=== PATIENT | female | born 1960 | race Caucasian/White ===

== ENCOUNTER → 2016-06-07 | Outpatient (CLI) | payer BC ==
[~2016-06-07] MED LIST: DILT300C21 PO; LISI-725 PO
--- NOTE | 2016-06-07 12:32 | MAMMOGRAPHY REPORT ---
BILATERAL DIGITAL SCREENING MAMMOGRAM TOMOSYNTHESIS WITH CAD: 06/07/2016 CLINICAL HISTORY: Routine screening. Patient has no complaints. TECHNIQUE: Breast tomosynthesis in addition to standard 2D mammography was performed. Current study was also evaluated with a Computer Aided Detection (CAD) system. COMPARISON: Comparison is made to exams dated: 05/12/2015 mammogram, 07/21/2010 mammogram - [facility], and 01/31/2007. BREAST COMPOSITION: There are scattered areas of fibroglandular density in both breasts. FINDINGS: No suspicious masses, calcifications, or areas of architectural distortion are noted in e ither breast. There has been no significant interval change compared to prior exams. IMPRESSION: ACR BI-RADS CATEGORY 1: NEGATIVE There is no mammographic evidence of malignancy. A 1 year screening mammogram is recommended. The p atient will receive written notification of the results. Approximately 10% of breast cancers are not detected with mammography. A negative mammographic repor t should not delay biopsy if a clinically suggestive mass is present. Mary Lou Horton M.D. ah/:06/07/2016 11:38:18 Clinical Nursing Director: Bushra DE GUZMAN(Maricruz)(Sky)(BD), [facility] letter sent: Normal 1/2 BI-RADS Code: ACR BI-RADS Category 1: Negative
== END | disposition home or self-care (01) ==
LOC: C.MAMM 10:42
PROVIDERS: ATTEND Internal Medicine
DX: Z12.31 Encounter for screening mammogram for malignant neoplasm of breast (principal)

== ENCOUNTER → 2017-06-07 | Outpatient (CLI) | payer BC | END | disposition home or self-care (01) | LOC: C.LABBFT 13:25 | PROVIDERS: ATTEND Internal Medicine | DX: D50.9 Iron deficiency anemia, unspecified (principal) ==

== ENCOUNTER → 2017-06-10 | Outpatient (CLI) | payer BC ==
--- NOTE | 2017-06-11 07:57 | MAMMOGRAPHY REPORT ---
BILATERAL DIGITAL SCREENING MAMMOGRAM TOMOSYNTHESIS WITH CAD: 06/10/2017 CLINICAL HISTORY: Routine screening. TECHNIQUE: Breast tomosynthesis in addition to standard 2D mammography was performed. Current study was also evaluated with a Computer Aided Detection (CAD) system. COMPARISON: Comparison is made to exams dated: 06/07/2016 mammogram, 05/12/2015 mammogram, 07/21/2010 ma mmogram - [facility], and 01/31/2007. BREAST COMPOSITION: There are scattered areas of fibroglandular density in both breasts. FINDINGS: An asymmetry in the superior posterior right breast on the MLO view appears less prominent comparing to the 07/21/2010 mammograms, suggesting benignity. No suspicious mass, architectural dist ortion or cluster of microcalcifications is seen. IMPRESSION: ACR BI-RADS CATEGORY 1: NEGATIVE There is no mammographic evidence of malignancy. A 1 year screening mammogram is recommended. The pa tient will receive written notification of the results. Approximately 10% of breast cancers are not detected with mammography. A negative mammographic report should not delay biopsy if a clinically suggestive mass is present. Angella Hinojosa M.D. ay/:06/10/2017 18:07:22 Vacuum Bottle Assembler: Radha DE GUZMAN(Maricruz)(M), [facility] letter sent: Normal 1/2 BI-RADS Code: ACR BI-RADS Category 1: Negative
== END | disposition home or self-care (01) ==
LOC: C.MAMM 10:48
PROVIDERS: ATTEND Internal Medicine
DX: Z12.31 Encounter for screening mammogram for malignant neoplasm of breast (principal)

== ENCOUNTER 2024-10-25 19:56 | Inpatient (IN) ==
[2024-10-25] MEDS: ACETAMINOPHEN 1,000 MG/100 ML VIAL IV STA (20:41)
[2024-10-25] MEDS: SODIUM CHLORIDE 0.9% 1,000 ML IV ONE (20:41)
[2024-10-25 21:18] LABS: Alanine Aminotransferase 12.0 U/L (7-52); Alkaline Phosphatase 161.0 U/L (34-104); Anion Gap 8.0 (3-11); Bilirubin,Total 0.5 mg/dl (0.2-1.0); Blood Urea Nitrogen 24.0 mg/dl (6-23); Calcium 8.9 mg/dl (8.6-10.3); Carbon Dioxide 26.0 mmol/L (21-32); Chloride 100.0 mmol/L (98-107); Creatinine Clr Calc Pharmacy 59.5 ml/min; Glucose 117.0 mg/dl (70-99(Fasting)); Magnesium 1.3 mg/dl (1.7-2.4); Potassium 3.4 mmol/L (3.5-5.1); Sodium 134.0 mmol/L (136-145); Total Protein 7.8 gm/dl (6.0-8.3)
[2024-10-25] MEDS: OPTIRAY 320 100ml IV ONE (21:24)
[2024-10-25 21:27] LABS: Appearance Urine Clear (Clear); Bacteria Urine Automated None Seen (None Seen); Cast Urine Automated 0-2 /lpf (0-2); Epithelial Cell Urine Auto 0-2 /hpf (0-2); Glucose Urine UA Negative (Negative); WBC Urine Automated 0-5 /hpf (0-5)
[2024-10-25 21:32] LABS: INR 1.2 (0.9-1.1); Partial Thromboplastin Time 36 Seconds (21-31); Prothrombin Time 13.0 Seconds (9.0-12.0)
[2024-10-25 21:37] LABS: Hematocrit (blood only) 29.2 % (37.0-47.0); Hemoglobin 9.2 g/dl (12.0-16.0); Immature Granulocytes # (auto) 0.05 K/uL (0.01-0.20); Immature Granulocytes % (auto) 0.3 %; Mean Corpuscular Hemoglobin 31.5 pg (25.0-34.0); Mean Corpuscular Volume 100.0 fL (80.0-100.0); Platelet Count 406 K/uL (130-400); RDW Standard Deviation 57.1 fL (36.4-46.3); Red Blood Count 2.92 M/uL (4.20-5.40); White Blood Count 17.77 K/ul (4.8-10.8)
[2024-10-25 21:40] LABS: Base Excess VBG 0.6 mEq/L; HCO3 VBG 24 mmol/L; Oxygen Saturation VBG 99.0 %; PCO2 VBG 33 mmHg (38-50); PO2 VBG 74 mmHg; pH VBG 7.47 (7.36-7.41)
--- NOTE | 2024-10-25 22:11 | CT Scan Report ---
Exam(s): CT ABDOMEN + PELVIS With Contrast IV Amt: optiray 320 90ml EXAM: CT Abdomen and Pelvis With Intravenous Contrast CLINICAL HISTORY: Reason for exam: abd pain fever. TECHNIQUE: Axial computed tomography images of the abdomen and pelvis with intravenous contrast. CTDI is 10 mGy and DLP is 462 mGy-cm. Automated exposure control was utilized for the study. A dose lowering technique was utilized adhering to the principles of ALARA. CONTRAST: Patient received optiray 320 90ml of IV contrast COMPARISON: CT abdomen pelvis 09/01/2024 FINDINGS: ABDOMEN: Liver: Low-attenuation lesion in the right hepatic lobe measuring 4.3 x 3.8 cm, previously 4.5 x 3.9 cm. Low-attenuation lesion in the left hepatic lobe measuring 3.1 x 2.5 cm, previously 3.3 x 2.9 cm. Gallbladder and bile ducts: Unremarkable. Pancreas: Unremarkable. Spleen: Unremarkable. Adrenals: Unremarkable. Kidneys and ureters: Incompletely characterized lesion in the superior pole the left kidney measuring 3.3 x 2.2 cm, previously 2.3 x 1.9 cm. Stomach and bowel: Moderate colonic stool burden. Colonic diverticulosis without acute diverticulitis. No inflammatory changes. No obstruction. PELVIS: Appendix: No findings to suggest acute appendicitis. Bladder: Unremarkable. Reproductive: Right adnexal lesion measuring 5.4 x 4.5 cm is new. ABDOMEN and PELVIS: Intraperitoneal space: Unremarkable. No free air. No significant fluid collection. Bones/joints: No acute fracture. Soft tissues: Unremarkable. Vasculature: Unremarkable. Lymph nodes: Unremarkable. IMPRESSION: 1. Hepatic lesions are similar to slightly smaller in size. 2. Right adnexal lesion measuring 5.4 x 4.5 cm is new. 3. Incompletely characterized lesion in the superior pole the left kidney slightly increased in size measuring 3.3 x 2.2 cm, previously 2.3 x 1.9 cm. Electronically signed by: Delonte Mora MD 10/25/24 22:09 PM
--- NOTE | 2024-10-25 22:27 | Emergency Department Note ---
History of Present Illness General Chief complaint: Fever Stated complaint: FEVER, REF BY DR Ahn Seen by Provider: 10/25/24 20:08 History of Present Illness Provider complaint: Fever abdominal pain Onset (ago): day(s) 1 Location: abdomen Maximum Pain Intensity: 2 Associated symptoms: + fever/chills 64-year-old female presents emergency department for fever and abdominal pain. Patient reports her symptoms been present for 1 day. Patient reports her pain is in the left lower quadrant. Patient is undergoing chemotherapy by Dr. Ware for colon cancer. No nausea vomiting or diarrhea. No melena or hematochezia. Home Medications Medication Instructions Recorded Confirmed Type ondansetron 8 mg disintegrating 8 mg PO Q8H 07/21/24 10/25/24 History tablet diltiazem HCl 300 mg 300 mg PO DAILY #90 caps 07/22/24 10/25/24 Rx capsule,extended release 24 hr (Cartia XT) lisinopril 20 mg tablet 20 mg PO DAILY #90 tabs 07/22/24 10/25/24 Rx omeprazole 40 mg capsule,delayed 40 mg PO DAILY #90 caps 09/04/24 10/25/24 Rx release baclofen 10 mg tablet 10 mg PO Q6H PRN Muscle Spasm 09/10/24 10/25/24 History dicyclomine 20 mg tablet 20 mg PO Q4H PRN Diarrhea 09/10/24 10/25/24 History lidocaine HCl 2 % mucosal solution 1 applic PO Q4H PRN Mouth Pain 09/10/24 10/25/24 History oxycodone 5 mg/5 mL oral solution 5 mg PO Q6H PRN Pain 09/10/24 10/25/24 History prochlorperazine maleate 10 mg 10 mg PO Q6H PRN Nausea And 09/10/24 10/25/24 History tablet Vomiting apixaban 5 mg (74 tabs) tablets in 5 mg PO BID #74 ea 09/21/24 10/25/24 Rx a dose pack (Eliquis) morphine 10 mg/5 mL oral solution 5 mg (2.5 mL) PO Q6H PRN pain #100 09/21/24 10/25/24 Rx mL capecitabine 500 mg tablet See Rx Instructions .Route .COMPLEX 10/25/24 10/25/24 History Allergies Allergy/AdvReac Type Severity Reaction Status Date / Time metronidazole [From Flagyl] AdvReac Severe Vomiting Verified 10/25/24 22:37 Past Med/Surg History Problem List (Updated 10/25/24 @ 22:42 by Bryce Coyle MD) Fever (Acute) Abdominal pain (Acute) Hypomagnesemia (Acute) Esophageal candidiasis Elevated INR Pulmonary embolism Immunosuppressed status Hypokalemia Dehydration with hypernatremia Abnormal CT of the chest Enterocolitis Legally blind (Chronic) Primary malignant neoplasm of colorectal area with metastasis (Chronic) Retinitis pigmentosa (Chronic) legally blind Hypertension (Chronic) Medical History BPPV (benign paroxysmal positional vertigo) Glomerulonephritis Surgical History History of thyroid cyst removed History of open reduction and internal fixation (ORIF) procedure left arm, childhood History of biopsy of kidney History of liver biopsy Hx of colonoscopy History of D&C Family History Mother Diabetes Father Stroke Heart disease Hypertension Son Factor VII deficiency Grandmother Myocardial infarction Other Cancer Clotting disorder Colorectal cancer Denies family history of Ovarian cancer Prostate cancer Breast cancer Social History Smoking Status: Never smoker Second Hand Exposure: No; Do You Dip or Chew Tobacco: No; Hx Alcohol Use: No Hx Substance Use: No Preferred Language: Maori Communication Ability: Effective Communication Ability Comment: needs to be read to- light perception only Visual Impairment: Blindness Hearing Ability: Normal Mining Engineer Required: No Beliefs That Will Affect Care: Synagogue Synagogue Beliefs: Sabianist marital status: Current Living Situation: Spouse Current Living Situation Comment: Live-in seeing eye dog current occupational status: employed current occupation: Counselor How many Children do You have: 3 Feels Safe at Home: Yes Childhood Exposure to Second-Hand Smoke: No Diet: regular caffeine: Yes Dental Care, Regularly: Yes Physical Activity Frequency: Daily Seatbelt Use: always Sunscreen Use: Yes Assistive Devices: None Physical Exam Vital Signs Vital Signs - 24 hr 10/25/24 19:59 10/25/24 21:34 10/25/24 21:35 Temperature 38.5 C H Temperature Source Oral Pulse Rate 100 H 78 Pulse Rate [Right Finger] 75 Respiratory Rate 18 20 Respiratory Effort / Characteristics Non-Labored Spontaneous Non-Labored Spontaneous Respiratory Depth Normal Normal Respiratory Pattern Regular Blood Pressure 162/99 H Blood Pressure [Right Arm] 138/75 Blood Pressure Mean 120 Blood Pressure Mean [Right Arm] 96 Blood Pressure Position Sitting Pulse Oximetry 98 95 Oxygen Delivery Method Room Air Room Air Sepsis Recent Fever Within 48 Hours Yes Sepsis New/Unexplained Change in Mental Status N/A Sepsis Action Taken by Nursing No Action Required 10/25/24 21:45 10/25/24 21:56 10/25/24 22:00 Temperature 37.6 C Temperature Source Oral Pulse Rate Pulse Rate [Right Finger] 70 76 76 Respiratory Rate 20 21 19 Respiratory Effort / Characteristics Non-Labored Spontaneous Non-Labored Spontaneous Non-Labored Spontaneous Respiratory Depth Normal Normal Normal Respiratory Pattern Blood Pressure Blood Pressure [Right Arm] 129/80 133/80 133/80 Blood Pressure Mean Blood Pressure Mean [Right Arm] 96 97 97 Blood Pressure Position Pulse Oximetry 97 97 97 Oxygen Delivery Method Room Air Room Air Room Air Sepsis Recent Fever Within 48 Hours Sepsis New/Unexplained Change in Mental Status Sepsis Action Taken by Nursing Physical Exam HENT: Exam performed. -Head: Normocephalic and atraumatic. -Mouth/Throat: The oropharynx is clear and moist. No trismus in the jaw. No dental abscesses or uvula swelling. No oropharyngeal exudate or tonsillar abscesses. EYES: Blind. NECK: Normal range of motion. Neck supple. No JVD present. No tracheal deviation and normal range of motion present. CV: Normal rate, regular rhythm, normal heart sounds and intact distal pulses. There is no peripheral edema. Palpable radial pulses bue. PULM/CHEST: Effort normal and breath sounds normal. No respiratory distress. No stridor. no wheezes.no rales. -Chest Wall: no tenderness to palpation ABD: The abdomen is soft. no distension. No mass is present. There is tenderness to palpation of the left lower quadrant. There is no rebound, no guarding. MUSC/SKEL: Normal range of motion. There is no peripheral edema, tenderness or deformity. NEURO: Motor and sensation grossly intact. SKIN: Skin is warm and dry. not diaphoretic. PSYCH: normal mood and affect. Behavior is normal. Judgment and thought content normal. Course Course 2007: The patient was evaluated in room C3. A complete history and physical exam was performed Cardiac monitoring: An order was placed for continuous cardiac monitoring. The monitor shows a rate of 90 with sinus rhythm interpreted by mt [id number]: Vital signs stable. Labs show leukocytosis 17.7. Hemoglobin 9.2. Lactic acid procalcitonin unremarkable. Magnesium 1.3. Magnesium repletion begun in the emergency department. Patient treated empirically with Zosyn. BioFire still pending. Chest x-ray unremarkable. CT of the abdomen pelvis shows a new right adnexal lesion and stable hepatic lesions. Patient will be admitted to the hospitalist team discussed case with Dr. Stark who evaluate the patient for admission. Administered Medications Discontinued Medications Sodium Chloride (Nss) 1,000 mls @ 999 mls/hr IV .Q1H1M ONE Stop: 10/25/24 21:09 Last Infusion: 10/25/24 22:11 Dose: Infused Documented By: Admin: 10/25/24 20:41 Dose: 999 mls/hr Documented By: YOANAK Acetaminophen (Ofirmev) 1,000 mg in 100 mls @ 400 mls/hr IV NOW STA Stop: 10/25/24 20:36 Last Infusion: 10/25/24 21:16 Dose: Infused Documented By: Admin: 10/25/24 20:41 Dose: 400 mls/hr Documented By: YOANAK Ioversol (Optiray 320 100ml) 90 ml IV ONCE ONE Stop: 10/25/24 21:25 Last Admin: 10/25/24 21:24 Dose: 90 ml Documented By: EDK Medical Decision Making Laboratory Data Attestation: I reviewed the patient's lab results. 10/25/24 20:38 10/25/24 20:38 Lab Results 10/25/24 10/25/24 10/25/24 Range/Units 20:38 20:47 21:06 WBC 17.77 H (4.8-10.8) K/ul RBC 2.92 L (4.20-5.40) M/uL Hgb 9.2 L (12.0-16.0) g/dl POC Hgb 9.9 L (12.0-16.0) g/dl Hct 29.2 L (37.0-47.0) % POC Hct 29 L (37-47) % MCV 100.0 (80.0-100.0) fL MCH 31.5 (25.0-34.0) pg MCHC 31.5 L (32.0-36.0) g/dL RDW Std Deviation 57.1 H (36.4-46.3) fL RDW Coeff of Ochoa 15.8 H (11.5-14.5) % Plt Count 406 H (130-400) K/uL MPV 10.0 (9.4-12.4) fL Immature Gran % (Auto) 0.3 % Neut % (Auto) 72.1 % Lymph % (Auto) 21.9 % [place]wey % (Auto) 5.5 % Eos % (Auto) 0.0 % Baso % (Auto) 0.2 % Neut # (Auto) 12.80 H (1.40-6.50) K/uL Lymph # (Auto) 3.90 H (1.20-3.40) K/uL [place]wey # (Auto) 0.98 H (0.11-0.59) K/uL Eos # (Auto) 0.00 (0.00-0.50) K/uL Baso # (Auto) 0.04 (0.00-0.20) K/uL Immature Gran # (Auto) 0.05 (0.01-0.20) K/uL PT 13.0 H (9.0-12.0) Seconds INR 1.2 H (0.9-1.1) APTT 36 H (21-31) Seconds PTT Ratio 1.3 VBG pH 7.47 H (7.36-7.41) VBG pCO2 33 L (38-50) mmHg VBG pO2 74 mmHg VBG HCO3 24 mmol/L VBG O2 Saturation 99.0 % VBG Base Excess 0.6 mEq/L POC Sodium 135 (135-144) mmol/L Sodium 134 L (136-145) mmol/L POC Potassium 3.4 (3.3-5.0) mmol/L Potassium 3.4 L (3.5-5.1) mmol/L POC Chloride 100 L (101-112) mmol/L Chloride 100 (98-107) mmol/L Carbon Dioxide 26 (21-32) mmol/L POC Total CO2 23 L (24-31) mmol/L Anion Gap 8 (3-11) POC Anion Gap 17.0 (16-25) mmol/L POC BUN 21 H (7-18) mg/dl BUN 24 H (6-23) mg/dl Creatinine 0.81 (0.6-1.2) mg/dl POC Creatinine 0.9 (0.6-1.3) mg/dl Est Cr Clr Drug Dosing 59.5 ml/min eGFR 81.52 BUN/Creatinine Ratio 29.6 H (10-20) Glucose 117 H (70-99(Fasting)) mg/dl POC Glucose (other) 118 H (70-99) mg/dl Lactate 0.8 (0.4-2.0) mmol/L Calcium 8.9 (8.6-10.3) mg/dl POC Ioniz Calcium Sarthak 1.09 L (1.12-1.32) mmol/l Magnesium 1.3 L (1.7-2.4) mg/dl Total Bilirubin 0.5 (0.2-1.0) mg/dl Direct Bilirubin 0.1 (0-0.2) mg/dl AST 15 (13-39) U/L ALT 12 (7-52) U/L Alkaline Phosphatase 161 H (34-104) U/L Troponin I High Sens 10.2 (0-14) pg/ml Total Protein 7.8 (6.0-8.3) gm/dl Albumin 3.2 L (3.4-5.0) gm/dl Procalcitonin 0.39 (0-0.5) ng/ml Urine Color Yellow Urine Appearance Clear (Clear) Urine pH 6.5 (4.5-7.5) Ur Specific [place] 1.013 (1.000-1.030) Urine Protein 3+ H (Negative) Urine Glucose (UA) Negative (Negative) Urine Ketones Negative (Negative) Urine Blood Trace H (Negative) Urine Nitrite Negative (Negative) Urine Bilirubin Negative (Negative) Urine Urobilinogen Negative (Negative) Ur Leukocyte Esterase Negative (Negative) Urine WBC (Auto) 0-5 (0-5) /hpf Urine RBC (Auto) 3-5 H (0-2) /hpf U Hyaline Cast (Auto) 0-2 (0-2) /lpf U Epithel Cells (Auto) 0-2 (0-2) /hpf Urine Bacteria (Auto) None Seen (None Seen) Urine Comment Imaging Data Attestation: I personally reviewed and interpreted this imaging study as follows: My Impression: Chest x-ray negative. Airway clear. No pneumothorax. No consolidation. No cardiomegaly or cephalization.. No free air under the diaphragm. No fractures of the skeletal structures. Radiologist's Impression: Abdomen/Pelvis CT 10/25/24 20:09 Exam(s): CT ABDOMEN + PELVIS With Contrast IV Amt: optiray 320 90ml EXAM: CT Abdomen and Pelvis With Intravenous Contrast CLINICAL HISTORY: Reason for exam: abd pain fever. TECHNIQUE: Axial computed tomography images of the abdomen and pelvis with intravenous contrast. CTDI is 10 mGy and DLP is 462 mGy-cm. Automated exposure control was utilized for the study. A dose lowering technique was utilized adhering to the principles of ALARA. CONTRAST: Patient received optiray 320 90ml of IV contrast COMPARISON: CT abdomen pelvis 09/01/2024 FINDINGS: ABDOMEN: Liver: Low-attenuation lesion in the right hepatic lobe measuring 4.3 x 3.8 cm, previously 4.5 x 3.9 cm. Low-attenuation lesion in the left hepatic lobe measuring 3.1 x 2.5 cm, previously 3.3 x 2.9 cm. Gallbladder and bile ducts: Unremarkable. Pancreas: Unremarkable. Spleen: Unremarkable. Adrenals: Unremarkable. Kidneys and ureters: Incompletely characterized lesion in the superior pole the left kidney measuring 3.3 x 2.2 cm, previously 2.3 x 1.9 cm. Stomach and bowel: Moderate colonic stool burden. Colonic diverticulosis without acute diverticulitis. No inflammatory changes. No obstruction. PELVIS: Appendix: No findings to suggest acute appendicitis. Bladder: Unremarkable. Reproductive: Right adnexal lesion measuring 5.4 x 4.5 cm is new. ABDOMEN and PELVIS: Intraperitoneal space: Unremarkable. No free air. No significant fluid collection. Bones/joints: No acute fracture. Soft tissues: Unremarkable. Vasculature: Unremarkable. Lymph nodes: Unremarkable. IMPRESSION: 1. Hepatic lesions are similar to slightly smaller in size. 2. Right adnexal lesion measuring 5.4 x 4.5 cm is new. 3. Incompletely characterized lesion in the superior pole the left kidney slightly increased in size measuring 3.3 x 2.2 cm, previously 2.3 x 1.9 cm. Electronically signed by: Delonte Mora MD 07/13/25 22:09 PM [facility] Narrative 2008: The patient was evaluated in room C3. A complete history and physical exam was performed Cardiac monitoring: An order was placed for continuous cardiac monitoring. The monitor shows a rate of 90 with sinus rhythm interpreted by mt [id number]: Vital signs stable. Labs show leukocytosis 17.7. Hemoglobin 9.2. Lactic acid procalcitonin unremarkable. Magnesium 1.3. Magnesium repletion begun in the emergency department. Patient treated empirically with Zosyn. BioFire still pending. Chest x-ray unremarkable. CT of the abdomen pelvis shows a new right adnexal lesion and stable hepatic lesions. Patient will be admitted to the hospitalist team discussed case with Dr. Stark who evaluate the patient for admission. Impression & Plan Hypomagnesemia, Abdominal pain, Fever Discharge Plan Visit Data Chief Complaint: Fever Stated Complaint: FEVER, REF BY ED Provider: Bryce Coyle Discharge Problem: Hypomagnesemia, Abdominal pain, Fever Patient Disposition: Admitted As Inpatient Condition: Fair Forms Stand Alone Forms: [facility] Prescriptions Prescriptions: No Action diltiazem HCl [Cartia XT] 300 mg capsule,extended release 24hr 300 mg PO DAILY Qty: 90 3RF Hold Instructions: Home Medication placed on hold at Doctor's office omeprazole 40 mg capsule,delayed release(DR/EC) 40 mg PO DAILY Qty: 90 3RF ondansetron 8 mg tablet,disintegrating 8 mg PO Q8H lisinopril 20 mg tablet 20 mg PO DAILY Qty: 90 3RF Hold Instructions: Home Medication placed on hold at Doctor's office oxycodone 5 mg/5 mL solution 5 mg PO Q6H PRN (Reason: Pain) prochlorperazine maleate 10 mg tablet 10 mg PO Q6H PRN (Reason: Nausea And Vomiting) dicyclomine 20 mg tablet 20 mg PO Q4H PRN (Reason: Diarrhea) baclofen 10 mg tablet 10 mg PO Q6H PRN (Reason: Muscle Spasm) lidocaine HCl 2 % solution 1 applic PO Q4H PRN (Reason: Mouth Pain) Eliquis 5 mg (74 tabs) tablets,dose pack 5 mg PO BID Qty: 74 0RF Rx Instructions: Please take 10mg twice daily for 5 more days, and then subsequently, take 5mg twice daily morphine 10 mg/5 mL solution 5 mg PO Q6H PRN (Reason: pain) Qty: 100 0RF Referrals Referrals: Jazzy Echols MD [Primary Care Provider] - Discharge Problem: Abdominal pain Qualifiers: Abdominal location: unspecified location Qualified Code(s): R10.9 - Unspecified abdominal pain
[2024-10-25] MEDS: PIPERACILLIN/TAZOBACTAM 4.5 GM/120 ML BAG IV ONE (22:35)
[2024-10-25 22:42] LABS: Chlamydia pneumoniae PCR Not Detected (NotDetected); Coronavirus 229E PCR Not Detected (NotDetected); Coronavirus CoV-2 (COVID19)PCR Not Detected (NotDetected); Coronavirus HKU1 PCR Not Detected (NotDetected); Coronavirus NL63 PCR Not Detected (NotDetected); Coronavirus OC43PCR Not Detected (NotDetected); Human Metapneumovirus PCR Not Detected (NotDetected); Parainfluenza Virus 1 PCR Not Detected (NotDetected); Parainfluenza Virus 2 PCR Not Detected (NotDetected); Parainfluenza Virus 3 PCR Not Detected (NotDetected); Parainfluenza Virus 4 PCR Not Detected (NotDetected); Respiratory Syncytial VirusPCR Not Detected (NotDetected); Rhinovirus/Enterovirus PCR Not Detected (NotDetected)
--- NOTE | 2024-10-25 22:42 | XRay Report ---
Exam(s): XR CXR 1 VIEW EXAM: XR Chest, 1 View CLINICAL HISTORY: Reason for exam: Sepsis. TECHNIQUE: Frontal view of the chest. COMPARISON: 07/08/2024 FINDINGS: Lungs: No consolidation. No overt edema. Pleural space: No pleural effusion. No pneumothorax. Heart: Unremarkable. No cardiomegaly. Tubes, lines and devices: Port-A-Cath in place. IMPRESSION: No acute findings in the chest. Electronically signed by: Delonte Mora MD 10/25/24 22:41 PM
--- NOTE | 2024-10-25 22:54 | History & Physical Report ---
Date of Service October 25, 2024 Assessment & Plan (1) Fever: (2) Hypomagnesemia: (3) Hypokalemia: Plan 64-year-old female PMHx PE on Eliquis, esophageal candidiasis, HTN, neoplasm of colorectal area with metastasis, and GERD presenting for fever of 101.6 (Tmax) on day of arrival with nausea and LLQ abdominal pain. ED evaluation reveals CBC with leukocytosis 17.77, H&H 9.2, 29.2, platelets 406; PT/INR 13/1.2, APTT 36; VBG's pH 7.47, pCO2 33; CMP sodium 134, potassium 3.4, BUN 24, ratio 29.6, glucose 117; magnesium 1.3; alkaline phosphatase 161; albumin 3.2; procalcitonin 0.39; lactate 0.8; UA negative for infection; BioFire negative; CTAP hepatic lesion similar to slightly smaller in size, right adnexal lesion measuring 5.4 x 4.5 cm is new, incompletely characterized lesion in the superior pole L kidney with increase in size (3.3 x 2.2 cm); CXR without acute findings; EKG sinus rhythm with PACs at 90 bpm.; Provided with 1L NSS, Zosyn 4.5 g IV, magnesium 2g IV, and acetaminophen 1 g IV in ED. #Fever Tmax 101.2 F on day of arrival. Some complaints of lower abdominal pain and nausea, without vomiting. Did have history of enterocolitis with diarrhea, treated with 7 day course of Zosyn at that time. ? bacteremia. - CBC leukocytosis 17.77; lactate 0.8; procalcitonin 0.39 - CBC am - BioFire negative, UA negative for infection - Blood cx pending - CXR WNL - CTAP without infectious findings, hepatic lesion similar to slightly smaller in size, right adnexal lesion measuring 5.4 x 4.5 cm is new, incompletely characterized lesion in the superior pole L kidney with increase in size (3.3 x 2.2 cm) - Acetaminophen prn pain/fever - Prochlorperazine + zofran prn N/V - Zosyn IV empirically given history and abdominal pain/nausea #Hypomagnesemia Received 2g IV in ED. - Mg 1.3 - Mg am - Replaced in ED #Hypokalemia Pt states she cannot tolerate oral K replacement, requesting IV. - K 3.4, Mg 1.3- BMP am - 10 mEq KCl IV #Colorectal Cancer with metastasis- Follows with heme/onc, most recent visit 10/07/2024; Port in L chest, placed July 08, 2024 without complaints; Heme/onc consulted - appreciate input + recs, continued chemotherapy at time of admission #PE- Eliquis - continue #HTN- Lisinopril on hold per PCP #GERD- Omeprazole - continue #Pain- Oxycodone, morphine - continue Dispo: Admit, med/sx VTE Prophylaxis: On Eliquis - continue This document was dictated utilizing Vinylmint. Please excuse any grammatical errors that may be secondary to use of this software. Admission and Anticipated Discharge Date Admission Date: 10/25/2024 History of Present Illness Chief Complaint: Fever Primary Care Provider: Jazzy Echols MD 64-year-old female PMHx PE on Eliquis, esophageal candidiasis, HTN, neoplasm of colorectal area with metastasis, and GERD presenting for fever of 101.6 (Tmax) on day of arrival. Patient states that August 2024 she was admitted to the hospital for a bowel infection which she initially had no symptoms from. States that she just presented with a fever and then was admitted for multiple days. She had only experienced some esophageal spasms a few days prior to that. Today, she is presenting with fever of 101.6. She does admit to having abdominal pain "down low" that is described as a jabbing pain that comes and goes. She has had some nausea as well, but no vomiting. 4 days [employer] she had an episode of diarrhea, but then this alternated with some constipation. Her last normal BM was the day of arrival. Patient states that her port was placed July 08, 2024, without any concerns regarding this. She did recently start chemotherapy, on infusion an oral regimen. Port without erythema or edema, no drainage. She did have some lower extremity edema bilateral legs, has resolved nicely. She does complain of some symptoms of TMJ over the past few days, but no URI symptoms to include congestion/rhinorrhea/sore throat. She did have a bout of esophageal candidiasis previously. She denies chest pain, SOB, palpitations, LUTS, numbness/tingling, weakness, syncope, or falls. No known sick contacts. She has no additional complaints. Patient is tearful, holding rosary and hand throughout visit. She is to have an infusion from oncologist 10/28/2024. Patient did not take her nighttime medications to include capecitabine or Eliquis. ED evaluation reveals CBC with leukocytosis 17.77, H&H 9.2, 29.2, platelets 406; PT/INR 13/1.2, APTT 36; VBG's pH 7.47, pCO2 33; CMP sodium 134, potassium 3.4, BUN 24, ratio 29.6, glucose 117; magnesium 1.3; alkaline phosphatase 161; albumin 3.2; procalcitonin 0.39; lactate 0.8; UA negative for infection; BioFire pending; CTAP hepatic lesion similar to slightly smaller in size, right adnexal lesion measuring 5.4 x 4.5 cm is new, incompletely characterized lesion in the superior pole L kidney with increase in size (3.3 x 2.2 cm); CXR without acute findings; EKG sinus rhythm with PACs at 90 bpm.; Provided with 1L NSS, Zosyn 4.5 g IV, magnesium IV, and acetaminophen 1 g IV in ED. Please see Dr. Stark's attestation for adjustments/additions to treatment plan. Allergies Allergy/AdvReac Type Severity Reaction Status Date / Time metronidazole [From Flagyl] AdvReac Severe Vomiting Verified 10/25/24 22:37 Home Medications Medication Instructions Recorded Confirmed Type ondansetron 8 mg disintegrating 8 mg PO Q8H PRN NAUSEA & VOMITING 07/21/24 10/25/24 History tablet diltiazem HCl 300 mg 300 mg PO DAILY #90 caps 07/22/24 10/25/24 Rx capsule,extended release 24 hr (Cartia XT) lisinopril 20 mg tablet 20 mg PO DAILY #90 tabs 07/22/24 10/25/24 Rx omeprazole 40 mg capsule,delayed 40 mg PO DAILY #90 caps 09/04/24 10/25/24 Rx release baclofen 10 mg tablet 10 mg PO Q6H PRN Muscle Spasm 09/10/24 10/25/24 History dicyclomine 20 mg tablet 20 mg PO Q4H PRN Diarrhea 09/10/24 10/25/24 History lidocaine HCl 2 % mucosal solution 1 applic PO Q4H PRN Mouth Pain 09/10/24 10/25/24 History oxycodone 5 mg/5 mL oral solution 5 mg PO Q6H PRN Pain 09/10/24 10/25/24 History prochlorperazine maleate 10 mg 10 mg PO Q6H PRN Nausea And 09/10/24 10/25/24 History tablet Vomiting apixaban 5 mg (74 tabs) tablets in 5 mg PO BID #74 ea 09/21/24 10/25/24 Rx a dose pack (Eliquis) morphine 10 mg/5 mL oral solution 5 mg (2.5 mL) PO Q6H PRN pain #100 09/21/24 10/25/24 Rx mL capecitabine 500 mg tablet See Rx Instructions .Route .COMPLEX 10/25/24 10/25/24 History Past Med/Surg History Problem List Fever (Acute) Abdominal pain (Acute) Hypomagnesemia (Acute) Esophageal candidiasis Elevated INR Pulmonary embolism Immunosuppressed status Hypokalemia Dehydration with hypernatremia Abnormal CT of the chest Enterocolitis Legally blind (Chronic) Primary malignant neoplasm of colorectal area with metastasis (Chronic) Retinitis pigmentosa (Chronic) legally blind Hypertension (Chronic) Medical History BPPV (benign paroxysmal positional vertigo) Glomerulonephritis Surgical History History of thyroid cyst removed History of open reduction and internal fixation (ORIF) procedure left arm, childhood History of biopsy of kidney History of liver biopsy Hx of colonoscopy History of D&C Family History Mother Diabetes Father Stroke Heart disease Hypertension Son Factor VII deficiency Grandmother Myocardial infarction Other Cancer Clotting disorder Colorectal cancer Denies family history of Ovarian cancer Prostate cancer Breast cancer Social History Smoking Status: Never smoker Second Hand Exposure: No; Do You Dip or Chew Tobacco: No; Hx Alcohol Use: No Hx Substance Use: No Preferred Language: Greenlandic Communication Ability: Effective Communication Ability Comment: needs to be read to- light perception only Visual Impairment: Blindness Hearing Ability: Normal Ore Feeder Required: No Beliefs That Will Affect Care: Evangelical Evangelical Beliefs: Spiritism marital status: Current Living Situation: Spouse Current Living Situation Comment: Live-in seeing eye dog current occupational status: employed current occupation: Counselor How many Children do You have: 3 Other Information That Helps Us Care for You: No Feels Safe at Home: Yes Safety Concerns: Feels Safe At This Time Childhood Exposure to Second-Hand Smoke: No Diet: regular caffeine: Yes Dental Care, Regularly: Yes Physical Activity Frequency: Daily Seatbelt Use: always Sunscreen Use: Yes Assistive Devices: None Assistive Devices Comment: Sight dog Review of Systems Review of Systems: All systems reviewed & are unremarkable except as noted in Subjective Physical Exam Physical Exam: General: No acute distress Skin: Warm and dry Head: Normocephalic, atraumatic Eyes: PERRL, conjunctivae clear, sclera non-icteric ENT: External ear and ear canal without swelling; nose atraumatic; good dentition, tongue normal appearance, pharynx normal Neck: Supple, no LAD Cardio: RRR, no M/G/R, S1 and S2 normal Resp: No respiratory distress, Lungs CTA in all lobes bilaterally, no wheezes, rales, or rhonchi Abdomen: Soft, symmetric, nontender; No masses or hepatosplenomegaly; Bowel sounds normoactive MSK: No deformities; pulses palpable and equal; no edema. Neuro: Awake, alert; Sensation intact bilaterally; CN grossly intact Psych: Tearful, Appropriate mood and affect; good judgement and insight. Results & Data Results & Data Vital Signs (Past 12 Hours) Vital Signs Temp Pulse Pulse Resp BP BP Pulse Ox 10/25/24 22:00 37.6 C 76 19 133/80 97 10/25/24 21:56 76 21 133/80 97 10/25/24 21:45 70 20 129/80 97 10/25/24 21:35 75 20 138/75 95 10/25/24 21:34 78 10/25/24 19:59 38.5 C H 100 H 18 162/99 H 98 O2 Del Method 10/25/24 22:00 Room Air 10/25/24 21:56 Room Air 10/25/24 21:45 Room Air 10/25/24 21:35 Room Air 10/25/24 21:34 10/25/24 19:59 Room Air Laboratory Results 10/25/24 20:57 Aerobic Blood Culture - Pending Blood Anaerobic Blood Culture - Pending 10/25/24 20:38 Aerobic Blood Culture - Pending Blood Anaerobic Blood Culture - Pending 10/25/24 10/25/24 10/25/24 21:11 21:06 20:47 WBC RBC Hgb POC Hgb 9.9 L Hct POC Hct 29 L MCV MCH MCHC RDW Std Deviation RDW Coeff of Ochoa Plt Count MPV Immature Gran % (Auto) Neut % (Auto) Lymph % (Auto) Yell % (Auto) Eos % (Auto) Baso % (Auto) Neut # (Auto) Lymph # (Auto) Yell # (Auto) Eos # (Auto) Baso # (Auto) Immature Gran # (Auto) PT INR APTT PTT Ratio VBG pH 7.47 H VBG pCO2 33 L VBG pO2 74 VBG HCO3 24 VBG O2 Saturation 99.0 VBG Base Excess 0.6 POC Sodium 135 Sodium POC Potassium 3.4 Potassium POC Chloride 100 L Chloride Carbon Dioxide POC Total CO2 23 L Anion Gap POC Anion Gap 17.0 POC BUN 21 H BUN Creatinine POC Creatinine 0.9 Est Cr Clr Drug Dosing eGFR BUN/Creatinine Ratio Glucose POC Glucose (other) 118 H Lactate Calcium POC Ioniz Calcium Sarthak 1.09 L Magnesium Total Bilirubin Direct Bilirubin AST ALT Alkaline Phosphatase Troponin I High Sens Total Protein Albumin Procalcitonin Urine Color Yellow Urine Appearance Clear Urine pH 6.5 Ur Specific [place] 1.013 Urine Protein 3+ H Urine Glucose (UA) Negative Urine Ketones Negative Urine Blood Trace H Urine Nitrite Negative Urine Bilirubin Negative Urine Urobilinogen Negative Ur Leukocyte Esterase Negative Urine WBC (Auto) 0-5 Urine RBC (Auto) 3-5 H U Hyaline Cast (Auto) 0-2 U Epithel Cells (Auto) 0-2 Urine Bacteria (Auto) None Seen Urine Comment Adenovirus (PCR) Not Detected B. pertussis DNA (PCR) Not Detected B.parapertussis DNA PCR Not Detected C. pneumoniae DNA (PCR) Not Detected Coronavirus OC43 (PCR) Not Detected Coronavirus HKU1 (PCR) Not Detected Coronavirus 229E (PCR) Not Detected SARS-CoV-2 (PCR) Not Detected Coronavirus NL63 (PCR) Not Detected Human Metapneumovir PCR Not Detected Influenza Type A (PCR) Not Detected Influenza Type B (PCR) Not Detected M. pneumoniae (PCR) Not Detected Parainfluenza 1 (PCR) Not Detected Parainfluenza 2 (PCR) Not Detected Parainfluenza 3 (PCR) Not Detected Parainfluenza 4 (PCR) Not Detected RSV (PCR) Not Detected Entero/Rhino (PCR) Not Detected 10/25/24 20:38 WBC 17.77 H RBC 2.92 L Hgb 9.2 L POC Hgb Hct 29.2 L POC Hct MCV 100.0 MCH 31.5 MCHC 31.5 L RDW Std Deviation 57.1 H RDW Coeff of Ochoa 15.8 H Plt Count 406 H MPV 10.0 Immature Gran % (Auto) 0.3 Neut % (Auto) 72.1 Lymph % (Auto) 21.9 Yell % (Auto) 5.5 Eos % (Auto) 0.0 Baso % (Auto) 0.2 Neut # (Auto) 12.80 H Lymph # (Auto) 3.90 H Yell # (Auto) 0.98 H Eos # (Auto) 0.00 Baso # (Auto) 0.04 Immature Gran # (Auto) 0.05 PT 13.0 H INR 1.2 H APTT 36 H PTT Ratio 1.3 VBG pH VBG pCO2 VBG pO2 VBG HCO3 VBG O2 Saturation VBG Base Excess POC Sodium Sodium 134 L POC Potassium Potassium 3.4 L POC Chloride Chloride 100 Carbon Dioxide 26 POC Total CO2 Anion Gap 8 POC Anion Gap POC BUN BUN 24 H Creatinine 0.81 POC Creatinine Est Cr Clr Drug Dosing 59.5 eGFR 81.52 BUN/Creatinine Ratio 29.6 H Glucose 117 H POC Glucose (other) Lactate 0.8 Calcium 8.9 POC Ioniz Calcium Sarthak Magnesium 1.3 L Total Bilirubin 0.5 Direct Bilirubin 0.1 AST 15 ALT 12 Alkaline Phosphatase 161 H Troponin I High Sens 10.2 Total Protein 7.8 Albumin 3.2 L Procalcitonin 0.39 Urine Color Urine Appearance Urine pH Ur Specific [place] Urine Protein Urine Glucose (UA) Urine Ketones Urine Blood Urine Nitrite Urine Bilirubin Urine Urobilinogen Ur Leukocyte Esterase Urine WBC (Auto) Urine RBC (Auto) U Hyaline Cast (Auto) U Epithel Cells (Auto) Urine Bacteria (Auto) Urine Comment Adenovirus (PCR) B. pertussis DNA (PCR) B.parapertussis DNA PCR C. pneumoniae DNA (PCR) Coronavirus OC43 (PCR) Coronavirus HKU1 (PCR) Coronavirus 229E (PCR) SARS-CoV-2 (PCR) Coronavirus NL63 (PCR) Human Metapneumovir PCR Influenza Type A (PCR) Influenza Type B (PCR) M. pneumoniae (PCR) Parainfluenza 1 (PCR) Parainfluenza 2 (PCR) Parainfluenza 3 (PCR) Parainfluenza 4 (PCR) RSV (PCR) Entero/Rhino (PCR) Diagnostic Findings Abdomen/Pelvis CT 10/25/24 20:09 Exam(s): CT ABDOMEN + PELVIS With Contrast IV Amt: optiray 320 90ml EXAM: CT Abdomen and Pelvis With Intravenous Contrast CLINICAL HISTORY: Reason for exam: abd pain fever. TECHNIQUE: Axial computed tomography images of the abdomen and pelvis with intravenous contrast. CTDI is 10 mGy and DLP is 462 mGy-cm. Automated exposure control was utilized for the study. A dose lowering technique was utilized adhering to the principles of ALARA. CONTRAST: Patient received optiray 320 90ml of IV contrast COMPARISON: CT abdomen pelvis 09/01/2024 FINDINGS: ABDOMEN: Liver: Low-attenuation lesion in the right hepatic lobe measuring 4.3 x 3.8 cm, previously 4.5 x 3.9 cm. Low-attenuation lesion in the left hepatic lobe measuring 3.1 x 2.5 cm, previously 3.3 x 2.9 cm. Gallbladder and bile ducts: Unremarkable. Pancreas: Unremarkable. Spleen: Unremarkable. Adrenals: Unremarkable. Kidneys and ureters: Incompletely characterized lesion in the superior pole the left kidney measuring 3.3 x 2.2 cm, previously 2.3 x 1.9 cm. Stomach and bowel: Moderate colonic stool burden. Colonic diverticulosis without acute diverticulitis. No inflammatory changes. No obstruction. PELVIS: Appendix: No findings to suggest acute appendicitis. Bladder: Unremarkable. Reproductive: Right adnexal lesion measuring 5.4 x 4.5 cm is new. ABDOMEN and PELVIS: Intraperitoneal space: Unremarkable. No free air. No significant fluid collection. Bones/joints: No acute fracture. Soft tissues: Unremarkable. Vasculature: Unremarkable. Lymph nodes: Unremarkable. IMPRESSION: 1. Hepatic lesions are similar to slightly smaller in size. 2. Right adnexal lesion measuring 5.4 x 4.5 cm is new. 3. Incompletely characterized lesion in the superior pole the left kidney slightly increased in size measuring 3.3 x 2.2 cm, previously 2.3 x 1.9 cm. Electronically signed by: Delonte Mora MD 10/25/24 22:09 PM Chest X-Ray 10/25/24 20:09 Exam(s): XR CXR 1 VIEW EXAM: XR Chest, 1 View CLINICAL HISTORY: Reason for exam: Sepsis. TECHNIQUE: Frontal view of the chest. COMPARISON: 07/08/2024 FINDINGS: Lungs: No consolidation. No overt edema. Pleural space: No pleural effusion. No pneumothorax. Heart: Unremarkable. No cardiomegaly. Tubes, lines and devices: Port-A-Cath in place. IMPRESSION: No acute findings in the chest. Electronically signed by: Delonte Mora MD 10/25/24 22:41 PM Medications Administered 1L NSS Zosyn 4.5 g IV Magnesium 2g IV Acetaminophen 1 g IV ECG Additional Comments: Sinus rhythm with PACs, LVH 90 bpm, CT 132, QRS 68, QT/QTc 354/433, PRT 45/55/58 Code Status & VTE Plan Code Status Full Supervising Physician Co-Signing Physician Notes Patient seen and examined, chart reviewed, discussed with SD Polo and I agree with the assessment and plan as above PG Care Time/CCT Total # of Minutes Spent Total Time Spent with Patient: Total time spent is greater than 50% in coordination of care (as documented) at patient's floor/unit and/or counseling patient: Coding Level of Care Code 26045 INT INP/OBS CARE 3/75MIN Diagnoses Fever R50.9 Hypomagnesemia E83.42 Hypokalemia E87.6
[2024-10-25] MEDS: MAGNESIUM SULFATE / D5W 1 GM/100 ML BAG IV SCH (23:02)
[2024-10-26] MEDS ORDERED: MORPHINE 10 MG/5 ML PO PRN (00:37)
[2024-10-26] MEDS ORDERED: MAGNESIUM HYDROXIDE SUSP 30 ML UDC PO PRN (00:37)
[2024-10-26] MEDS ORDERED: MELATONIN 3 MG TAB PO PRN (00:37)
[2024-10-26] MEDS ORDERED: BACLOFEN 10 MG TAB PO PRN (00:37)
[2024-10-26] MEDS ORDERED: PROCHLORPERAZINE MALEATE 10 MG TAB PO PRN (00:37)
[2024-10-26] MEDS ORDERED: POLYETHYLENE (MIRALAX) 17 GM PACK PO PRN (00:37)
[2024-10-26] MEDS ORDERED: LIDOCAINE VISCOUS 2% 15 ML UDC PO PRN (00:37)
[2024-10-26] MEDS ORDERED: ACETAMINOPHEN 325 MG TAB PO PRN (00:37)
[2024-10-26] MEDS: POTASSIUM CHLORIDE / WTR 10 MEQ/100 ML PLCT IV ONE (01:24)
[2024-10-26] MEDS ORDERED: ONDANSETRON 4 MG OD TAB PO PRN (01:30)
[2024-10-26] MEDS: PIPERACILLIN/TAZOBACTAM 4.5 GM/100 ML BAG IV SCH (03:53)
[2024-10-26 05:09] LABS: Hematocrit (blood only) 30.4 % (37.0-47.0); Hemoglobin 9.4 g/dl (12.0-16.0); Mean Corpuscular Hemoglobin 31.2 pg (25.0-34.0); Mean Corpuscular Volume 101.0 fL (80.0-100.0); Platelet Count 356 K/uL (130-400); RDW Standard Deviation 58.4 fL (36.4-46.3); Red Blood Count 3.01 M/uL (4.20-5.40); White Blood Count 16.22 K/ul (4.8-10.8)
[2024-10-26 05:26] LABS: Anion Gap 8.0 (3-11); Blood Urea Nitrogen 17.0 mg/dl (6-23); Calcium 8.5 mg/dl (8.6-10.3); Carbon Dioxide 25.0 mmol/L (21-32); Chloride 105.0 mmol/L (98-107); Creatinine Clr Calc Pharmacy 62.6 ml/min; Glucose 100.0 mg/dl (70-99(Fasting)); Magnesium 2.2 mg/dl (1.7-2.4); Potassium 3.6 mmol/L (3.5-5.1); Sodium 138.0 mmol/L (136-145)
[2024-10-26] MEDS: APIXABAN 5 MG TABLET PO SCH (08:18)
--- NOTE | 2024-10-26 11:14 | Electrocardiogram Report ---
Test Reason : Blood Pressure : */* mmHG Vent. Rate : 90 BPM Atrial Rate : 90 BPM P-R Int : 132 ms QRS Dur : 68 ms QT Int : 354 ms P-R-T Axes : 45 55 58 degrees QTcB Int : 433 ms Sinus rhythm with Premature atrial complexes Minimal voltage criteria for LVH, may be normal variant Borderline ECG When compared with ECG of 10-Sep-2024 16:48, Premature atrial complexes are now Present Vent. rate has increased by 37 bpm T wave inversion no longer evident in Lateral leads Confirmed by Angelito Lopez ([id number]) on 10/26/2024 11:14:34 AM Referred By: Luis Ware Confirmed By: Angelito Lopez
[2024-10-26] MEDS: FAMOTIDINE 20MG IV PUSH 20 MG/5 ML SYR IV STA (20:36)
[2024-10-26] MEDS: [UNRECOGNIZED DRUG - REMARK] PO SCH (21:30)
--- NOTE | 2024-10-26 23:00 | Hospitalist Progress Note ---
Date of Service October 26, 2024 Assessment & Plan (1) Fever: (2) Hypomagnesemia: (3) Hypokalemia: Plan 64-year-old female PMHx PE on Eliquis, esophageal candidiasis, HTN, neoplasm of colorectal area with metastasis, and GERD presenting for fever of 101.6 (Tmax) on day of arrival with nausea and LLQ abdominal pain. ED evaluation reveals CBC with leukocytosis 17.77, H&H 9.2, 29.2, platelets 406; PT/INR 13/1.2, APTT 36; VBG's pH 7.47, pCO2 33; CMP sodium 134, potassium 3.4, BUN 24, ratio 29.6, glucose 117; magnesium 1.3; alkaline phosphatase 161; albumin 3.2; procalcitonin 0.39; lactate 0.8; UA negative for infection; BioFire negative; CTAP hepatic lesion similar to slightly smaller in size, right adnexal lesion measuring 5.4 x 4.5 cm is new, incompletely characterized lesion in the superior pole L kidney with increase in size (3.3 x 2.2 cm); CXR without acute findings; EKG sinus rhythm with PACs at 90 bpm.; Provided with 1L NSS, Zosyn 4.5 g IV, magnesium 2g IV, and acetaminophen 1 g IV in ED. #Fever Tmax 101.2 F on day of arrival. Some complaints of lower abdominal pain and nausea, without vomiting. Did have history of enterocolitis with diarrhea, treated with 7 day course of Zosyn at that time. ? bacteremia. - CBC leukocytosis 17.77; lactate 0.8; procalcitonin 0.39 - - BioFire negative, UA negative for infection - Blood cx pending but negative at this point, - CXR WNL - CTAP without infectious findings, hepatic lesion similar to slightly smaller in size, right adnexal lesion measuring 5.4 x 4.5 cm is new, incompletely characterized lesion in the superior pole L kidney with increase in size (3.3 x 2.2 cm) - Acetaminophen prn pain/fever - Prochlorperazine + zofran prn N/V - Zosyn IV empirically given history and abdominal pain/nausea -fever curve improving, will remain on antibiotics. will consider consulting ID, if no source is identified. #Hypomagnesemia Received 2g IV in ED. - Mg 1.3 - Mg am - Replaced in ED #Hypokalemia Pt states she cannot tolerate oral K replacement, requesting IV. - K 3.4, Mg 1.3- BMP am - 10 mEq KCl IV #Colorectal Cancer with metastasis- Follows with heme/onc, most recent visit 10/07/2024; Port in L chest, placed July 08, 2024 without complaints; Heme/onc consulted - appreciate input + recs, continued chemotherapy at time of admission #PE- Eliquis - continue #HTN- Lisinopril on hold per PCP #GERD- Omeprazole - continue #Pain- Oxycodone, morphine - continue Dispo: Admit, med/sx VTE Prophylaxis: On Eliquis - continue Admission and Anticipated Discharge Date Admission Date: October 25, 2024 Subjective Patient reports feeling better. She has no current complaints. Physical Exam Physical Exam: General: No acute distress Head: Normocephalic, atraumatic Cardio: RRR, no M/G/R, S1 and S2 normal Resp: CTA Abdomen: Soft, symmetric, nontender; Neuro: Awake, alert; CN grossly intact Results & Data Results & Data Vital Signs (Past 12 Hours) Vital Signs Temp Pulse Pulse Resp BP Pulse Ox O2 Del Method 10/26/24 19:23 37.2 C 74 18 153/90 H 99 Room Air 10/26/24 16:22 36.9 C 72 16 153/85 H 98 Room Air 10/26/24 13:58 36.8 C 72 18 152/80 H 99 Room Air 10/26/24 13:15 67 10/26/24 12:45 75 18 123/75 99 Room Air PG Care Time/CCT Total # of Minutes Spent Total Time Spent with Patient: Total time spent is greater than 50% in coordination of care (as documented) at patient's floor/unit and/or counseling patient: Coding Level of Care Code 29763 SUB INP/OBS CARE 3/50MIN Diagnoses Fever R50.9 Hypomagnesemia E83.42 Hypokalemia E87.6
[2024-10-27 06:37] LABS: Hematocrit (blood only) 28.5 % (37.0-47.0); Hemoglobin 8.9 g/dl (12.0-16.0); Mean Corpuscular Hemoglobin 31.0 pg (25.0-34.0); Mean Corpuscular Volume 99.3 fL (80.0-100.0); Platelet Count 376 K/uL (130-400); RDW Standard Deviation 55.9 fL (36.4-46.3); Red Blood Count 2.87 M/uL (4.20-5.40); White Blood Count 14.58 K/ul (4.8-10.8)
[2024-10-27 06:51] LABS: Anion Gap 9.0 (3-11); Blood Urea Nitrogen 13.0 mg/dl (6-23); Calcium 8.8 mg/dl (8.6-10.3); Carbon Dioxide 25.0 mmol/L (21-32); Chloride 101.0 mmol/L (98-107); Creatinine Clr Calc Pharmacy 53.5 ml/min; Glucose 103.0 mg/dl (70-99(Fasting)); Potassium 3.5 mmol/L (3.5-5.1); Sodium 135.0 mmol/L (136-145)
[2024-10-27] MEDS: ONDANSETRON INJ 2 MG/ML 2 ML VIAL IV PRN (08:20)
[2024-10-27] MEDS: CAPECITABINE PO SCH (08:21)
--- NOTE | 2024-10-27 11:41 | Infectious Disease Consult ---
Date of Consultation October 27, 2024 Assessment & Plan (1) Fever: (2) Primary malignant neoplasm of colorectal area with metastasis: Plan ID Problem List: # Fever, resolved # Leukocytosis, improving # Mild abdominal pain # Stage IV metastatic colon ca dx 06/02/24 on chemotherapy (CapeOx plus bevacizumab 07/15/24 and 08/05/24 -> Capiri plus bevacizumab 08/26/24 -> now on just capecitabine + bevacizumab) via port placed 07/08/24 # Immunocompromised status due to chemotherapy Impression: Alyssa Mcmanus is a 64-year-old woman with history of stage IV metastatic colon ca dx 06/02/24 on chemotherapy (CapeOx plus bevacizumab 07/15/24 and 08/05/24 -> Capiri plus bevacizumab 08/26/24 -> now on just capecitabine + bevacizumab) via port placed 07/08/24, PE on Eliquis, esophageal candidiasis, GERD, recent a dmission to [facility] 09/1009/21/24 for enterocolitis in the setting of recent neutropenia, who presents to [facility] on 10/25/24 with fever. The patient was recently admitted from 09/1009/21/24 for enterocolitis in the setting of recent neutropenia. The patient had presented with 2 weeks of epigastric pain, especially after eating or drinking, with mild diarrhea. No fevers or vomiting. Her symptoms had begun shortly after her infusion of chemotherapy (Capiri plus bevacizumab on 08/26). She continued to have pain refractory to medications, and presented to [facility] on 09/10 at which time labs showed an increased WBC count to 9.65 on 09/10 (previously 2.54 on 09/08). A CT A/P with contrast showed possible enterocolitis and possible RLL segmental PE. She was seen by GI and suspected to have esophageal candidiasis (EGD not performed), and was treated with fluconazole and nystatin (had trouble tolerating fluconazole pills and continued on nystatin post-discharge). Her enterocolitis was treated with 7 days of pip-tazo and her diarrhea improved. The patient presents now with fever (to T101.6F on day of presentation). She reports that her noticed that she felt hot; she was otherwise asymptomatic and reports that she was under two blankets and didnt notice until her checked her temperature. She also has lower abdominal pain that is intermittent and nausea without vomiting. No sweats. She had loose stools 4 days GENERAL DOC but has since had constipation as well. In the ED, T38.5, WBC 17.7 Hgb 9.2 plt 406 Cr 0.81 AST 15 ALT 12 alp 161 procal 0.39 lactate 0.8. UA with 0-5 WBCs, 3-5 RBCs. BioFire negative. CTAP without infectious findings; did show hepatic lesion similar to slightly smaller in size, new right adnexal lesion measuring 5.4 x 4.5 cm, incompletely characterized lesion in the superior pole L kidney with increase in size (3.3 x 2.2 cm); CXR without acute findings. She was started on pip-tazo. The patients last fever was 38.5 on 10/25. She has had some lower-grade temps since then including T37.5 on 10/27. On 10/27, WBC 14.58. CRP 13.32. The patient last received IV chemotherapy (irinotecan) infusion on 08/26 but has stopped this. She is now only on oral capecitabine and bevacizumab (q3 weeks). She last received bevacizumab on 10/21; she continues to take oral capecitabine (though missed doses on Wednesday 10/25 when she came in to the hospital). She has not previously had any fevers after taking her bevacizumab. At the time of evaluation, the patient says she feels well and feels like she is at baseline. She says the PO capecitabine often causes her intermittent GI discomfort (nausea, abdominal discomfort) that is transient. No pain. Intermittent loose stools, formed stools, and constipation. Her odynophagia (presumed to be from esophageal candidiasis) has resolved. She has gone to hinduism and has gone shopping, and sometimes sits outdoors on her patio. No other recent travel. Discussion The patient presents with one day of fever of unclear etiology; this was not associated with any new symptoms (her noticed that she felt hot, the patient did not realize she was having a fever). She has intermittent mild abdominal pain and intermittent loose stools, but otherwise does not have symptoms. Stool biofire is negative. Consider the possibility of GI translocation (that was not detected on BCx) especially i/s/o colon ca, drug fevers (including from her chemo/immunotherapy). UA without pyuria. CXR clear and without respiratory symptoms. BCx remain NGTD. Her fevers have improved while in the hospital and receiving pip-tazo, suggestive of either a potential response to abx, or perhaps a self-resolving process (such as a viral infection). She also has a leukocytosis which is improving as well. CT A/P without acute infectious process, but does show a new R adnexal lesion which may represent a new metastatic lesion though is uncertain oncology to further evaluate. The patient last received IV chemotherapy (irinotecan) infusion on 08/26, and last received bevacizumab on 10/21; she continues to take oral capecitabine. She has never reported a fever after her bevacizumab or capecitabine in the past. She is not currently neutropenic. While she may have some intermittent neutropenia from chemotherapy, she is not a persistently neutropenic host. (The last time her labs showed neutropenia was 09/04/24 with WBC 0.40 ANC <500; has not been neutropenic since labs on 09/08/24). Given potential response to pip-tazo and the possibility of a GI source such as low-level GI translocation in the setting of cancer, can continue pip-tazo while inpatient, and transition to Augmentin upon discharge. Would ensure close follow-up. Recommendations: - Can continue pip-tazo while inpatient. Upon discharge, can change to Augmentin 875 mg PO BID to complete a 7-day course (10/2510/31/24) - F/u 10/25 BCx until finalized to ensure remains negative. - Ensure close follow-up with oncology and primary care Plan discussed with primary team. Thank you for letting ID participate in the care of this patient. ID will sign off at this time. If questions, please contact the [facility] call center at [phone]. Olivia Ochoa MD, MHS Infectious Diseases [facility] direct line: [phone] Consultation Information Consultation was provided via telemedicine using two-way real-time interactive telecommunication between the patient and the telemedicine provider. For the duration of the visit, the provider was performing the assessment from a different facility than the patient. This includesuse of bluetooth stethoscope forauscultationperformed by the telepresenter that the telemedicine provider can hear if described in the physical exam. [employer] contact information: Please call [facility] Call Center [phone]. (Phone Number For Physician Use Only) After establishing a telemedicine visit, patient was: Patient was verified with two unique identifiers, Patient/authorized rep acknowledged consent and understanding and Gave permission to continue telehealth session Time Spent with Patient: Initial => 75 min History of Present Illness Reason for Consultation: Fever Attending Physician: Chon Méndez History of Present Illness Alyssa Mcmanus is a 64-year-old woman with history of stage IV metastatic colon ca dx 06/02/24 on chemotherapy (CapeOx plus bevacizumab 07/15/24 and 08/05/24 -> Capiri plus bevacizumab 08/26/24 -> now on just capecitabine + bevacizumab) via port placed 07/08/24, PE on Eliquis, esophageal candidiasis, GERD, recent admission to [facility] 09/1009/21/24 for enterocolitis in the setting of recent neutropenia, who presents to [facility] on 10/25/24 with fever. The patient was recently admitted from 09/1009/21/24 for enterocolitis in the setting of recent neutropenia. The patient had presented with 2 weeks of epigastric pain, especially after eating or drinking, with mild diarrhea. No fevers or vomiting. Her symptoms had begun shortly after her infusion of chemotherapy (Capiri plus bevacizumab on 08/26). She continued to have pain refractory to medications, and presented to [facility] on 09/10 at which time labs showed an increased WBC count to 9.65 on 09/10 (previously 2.54 on 09/08). A CT A/P with contrast showed possible enterocolitis and possible RLL segmental PE. She was seen by GI and suspected to have esophageal candidiasis (EGD not performed), and was treated with fluconazole and nystatin (had trouble tolerating fluconazole pills and continued on nystatin post-discharge). Her enterocolitis was treated with 7 days of pip-tazo and her diarrhea improved. The patient presents now with fever (to T101.6F on day of presentation). She reports that her noticed that she felt hot; she was otherwise asymptomatic and reports that she was under two blankets and didnt notice until her checked her temperature. She also has lower abdominal pain that is intermittent and nausea without vomiting. No sweats. She had loose stools 4 days GENERAL DOC but has since had constipation as well. In the ED, T38.5, WBC 17.7 Hgb 9.2 plt 406 Cr 0.81 AST 15 ALT 12 alp 161 procal 0.39 lactate 0.8. UA with 0-5 WBCs, 3-5 RBCs. BioFire negative. CTAP without infectious findings; did show hepatic lesion similar to slightly smaller in size, new right adnexal lesion measuring 5.4 x 4.5 cm, incompletely characterized lesion in the superior pole L kidney with increase in size (3.3 x 2.2 cm); CXR without acute findings. She was started on pip-tazo. The patients last fever was 38.5 on 10/25. She has had some lower-grade temps since then including T37.5 on 10/27. On 10/27, WBC 14.58. CRP 13.32. The patient last received IV chemotherapy (irinotecan) infusion on 08/26 but has stopped this. She is now only on oral capecitabine and bevacizumab (q3 weeks). She last received bevacizumab on 10/21; she continues to take oral capecitabine (though missed doses on Wednesday 10/25 when she came in to the hospital). She has not previously had any fevers after taking her bevacizumab. At the time of evaluation, the patient says she feels well and feels like she is at baseline. She says the PO capecitabine often causes her intermittent GI discomfort (nausea, abdominal discomfort) that is transient. No pain. Intermittent loose stools, formed stools, and constipation. Her odynophagia (presumed to be from esophageal candidiasis) has resolved. She has gone to hinduism and has gone shopping, and sometimes sits outdoors on her patio. No other recent travel. Allergies Allergy/AdvReac Type Severity Reaction Status Date / Time metronidazole [From Flagyl] AdvReac Severe Vomiting Verified 10/25/24 22:37 Home Medications Medication Instructions Recorded Confirmed Type ondansetron 8 mg disintegrating 8 mg PO Q8H PRN NAUSEA & VOMITING 07/21/24 10/25/24 History tablet diltiazem HCl 300 mg 300 mg PO DAILY #90 caps 07/22/24 10/25/24 Rx capsule,extended release 24 hr (Cartia XT) lisinopril 20 mg tablet 20 mg PO DAILY #90 tabs 07/22/24 10/25/24 Rx omeprazole 40 mg capsule,delayed 40 mg PO DAILY #90 caps 09/04/24 10/25/24 Rx release baclofen 10 mg tablet 10 mg PO Q6H PRN Muscle Spasm 09/10/24 10/25/24 History dicyclomine 20 mg tablet 20 mg PO Q4H PRN Diarrhea 09/10/24 10/25/24 History lidocaine HCl 2 % mucosal solution 1 applic PO Q4H PRN Mouth Pain 09/10/24 10/25/24 History oxycodone 5 mg/5 mL oral solution 5 mg PO Q6H PRN Pain 09/10/24 10/25/24 History prochlorperazine maleate 10 mg 10 mg PO Q6H PRN Nausea And 09/10/24 10/25/24 History tablet Vomiting apixaban 5 mg (74 tabs) tablets in 5 mg PO BID #74 ea 09/21/24 10/25/24 Rx a dose pack ([employer]) morphine 10 mg/5 mL oral solution 5 mg (2.5 mL) PO Q6H PRN pain #100 09/21/24 10/25/24 Rx mL capecitabine 500 mg tablet See Rx Instructions .Route .COMPLEX 10/25/24 10/25/24 History Patient History Medical History BPPV (benign paroxysmal positional vertigo) Glomerulonephritis Surgical History History of thyroid cyst removed History of open reduction and internal fixation (ORIF) procedure left arm, childhood History of biopsy of kidney History of liver biopsy Hx of colonoscopy History of D&C Family History Mother Diabetes Father Stroke Heart disease Hypertension Son Factor VII deficiency Grandmother Myocardial infarction Other Cancer Clotting disorder Colorectal cancer Denies family history of Ovarian cancer Prostate cancer Breast cancer Social History Smoking Status: Never smoker Second Hand Exposure: No; Do You Dip or Chew Tobacco: No; Hx Alcohol Use: No Hx Substance Use: No Preferred Language: Danish Communication Ability: Effective Communication Ability Comment: needs to be read to- light perception only Visual Impairment: Blindness Hearing Ability: Normal Molding Line Operator Required: No Beliefs That Will Affect Care: Jew Jew Beliefs: Amish marital status: Current Living Situation: Spouse Current Living Situation Comment: Live-in seeing eye dog current occupational status: employed current occupation: Counselor How many Children do You have: 3 Other Information That Helps Us Care for You: No Feels Safe at Home: Yes Safety Concerns: Feels Safe At This Time Childhood Exposure to Second-Hand Smoke: No Diet: regular caffeine: Yes Dental Care, Regularly: Yes Physical Activity Frequency: Daily Seatbelt Use: always Sunscreen Use: Yes Assistive Devices: Bedside Commode and Walker Assistive Devices Comment: Sight dog Physical Exam Physical Exam: Exam obtained with assistance of an in-person telepresenter General: Well-appearing, no acute distress HEENT: Conjunctivae non-injected, sclerae anicteric, MMM, OP clear. Resp: Respirations nonlabored. Chest: Port site c/d/i Abd: Soft, nontender, nondistended. Back: No tenderness to palpation along spine Ext: No joint warmth or effusions noted. Skin: No rashes or lesions. Neuro: Alert & interactive. Grossly non-focal. Psych: Pleasant, appropriate. Results & Data Vital Signs (Past 12 Hours) Vital Signs Temp Pulse Pulse Resp BP Pulse Ox O2 Del Method 10/27/24 10:55 37.1 C 78 16 149/90 H 97 Room Air 10/27/24 09:17 74 10/27/24 07:50 36.8 C 81 14 155/84 H 99 Room Air 10/27/24 03:01 37.5 C 85 18 156/86 H 97 Room Air Diagnostic Findings Diagnostics: 10/25 CXR No acute findings in the chest. 10/25 CT A/P 1. Hepatic lesions are similar to slightly smaller in size. 2. Right adnexal lesion measuring 5.4 x 4.5 cm is new. 3. Incompletely characterized lesion in the superior pole the left kidney slightly increased in size measuring 3.3 x 2.2 cm, previously 2.3 x 1.9 cm. Micro Data: 10/25 BCx x2: NGTD 10/25 stool biofire: neg Antibiotic Summary: pip-tazo (10/25 present) (1) Fever Fever type: unspecified Qualified Code(s): R50.9 - Fever, unspecified
--- NOTE | 2024-10-27 22:19 | Hospitalist Progress Note ---
Date of Service October 27, 2024 Assessment & Plan (1) Fever: (2) Hypomagnesemia: (3) Hypokalemia: Plan 64-year-old female PMHx PE on Eliquis, esophageal candidiasis, HTN, neoplasm of colorectal area with metastasis, and GERD presenting for fever of 101.6 (Tmax) on day of arrival with nausea and LLQ abdominal pain. ED evaluation reveals CBC with leukocytosis 17.77, H&H 9.2, 29.2, platelets 406; PT/INR 13/1.2, APTT 36; VBG's pH 7.47, pCO2 33; CMP sodium 134, potassium 3.4, BUN 24, ratio 29.6, glucose 117; magnesium 1.3; alkaline phosphatase 161; albumin 3.2; procalcitonin 0.39; lactate 0.8; UA negative for infection; BioFire negative; CTAP hepatic lesion similar to slightly smaller in size, right adnexal lesion measuring 5.4 x 4.5 cm is new, incompletely characterized lesion in the superior pole L kidney with increase in size (3.3 x 2.2 cm); CXR without acute findings; EKG sinus rhythm with PACs at 90 bpm.; Provided with 1L NSS, Zosyn 4.5 g IV, magnesium 2g IV, and acetaminophen 1 g IV in ED. #Fever Tmax 101.2 F on day of arrival. Some complaints of lower abdominal pain and nausea, without vomiting. Did have history of enterocolitis with diarrhea, treated with 7 day course of Zosyn at that time. ? bacteremia. - CBC leukocytosis 17.77; lactate 0.8; procalcitonin 0.39 - - BioFire negative, UA negative for infection - Blood cx pending but negative at this point, - CXR WNL - CTAP without infectious findings, hepatic lesion similar to slightly smaller in size, right adnexal lesion measuring 5.4 x 4.5 cm is new, incompletely characterized lesion in the superior pole L kidney with increase in size (3.3 x 2.2 cm) - Acetaminophen prn pain/fever - Prochlorperazine + zofran prn N/V - Zosyn IV empirically given history and abdominal pain/nausea -fever curve improving, will remain on antibiotics. consulted ID., unsure of cause. Patient will be discharged on oral antibiotics when she is medically stable. #Hypomagnesemia Received 2g IV in ED. - Replaced in ED -repeat was normal #Hypokalemia Pt states she cannot tolerate oral K replacement, requesting IV. - repeat was normal. #Colorectal Cancer with metastasis- Follows with heme/onc, most recent visit 10/07/2024; Port in L chest, placed July 08, 2024 without complaints; Heme/onc consulted - appreciate input + recs, continued chemotherapy at time of admission Awaiting input from oncologist regarding new adnexal lesion #PE- Eliquis - continue #HTN- Lisinopril on hold per PCP #GERD- Omeprazole - continue #Pain- Oxycodone, morphine - continue Dispo: Admit, med/sx VTE Prophylaxis: On Eliquis - continue Admission and Anticipated Discharge Date Admission Date: October 25, 2024 Subjective 64 yo female reports no new symptoms. Physical Exam Physical Exam: General: No acute distress Head: Normocephalic, atraumatic Cardio: RRR, no M/G/R, S1 and S2 normal Resp: CTA Abdomen: Soft, symmetric, nontender; Neuro: Awake, alert; CN grossly intact Results & Data Results & Data Vital Signs (Past 12 Hours) Vital Signs Temp Pulse Pulse Resp BP Pulse Ox O2 Del Method 10/27/24 19:08 36.9 C 82 18 159/90 H 97 Room Air 10/27/24 15:38 36.9 C 79 16 141/84 H 97 Room Air 10/27/24 14:55 89 10/27/24 10:55 37.1 C 78 16 149/90 H 97 Room Air PG Care Time/CCT Total # of Minutes Spent Total Time Spent with Patient: Total time spent is greater than 50% in coordination of care (as documented) at patient's floor/unit and/or counseling patient: Coding Level of Care Code 84403 SUB INP/OBS CARE 3/50MIN Diagnoses Fever, unspecified fever cause R50.9 Fever type: unspecified Hypomagnesemia E83.42 Hypokalemia E87.6 (1) Fever Fever type: unspecified Qualified Code(s): R50.9 - Fever, unspecified
[2024-10-28 07:20] LABS: Hematocrit (blood only) 29.8 % (37.0-47.0); Hemoglobin 9.1 g/dl (12.0-16.0); Mean Corpuscular Hemoglobin 30.7 pg (25.0-34.0); Mean Corpuscular Volume 100.7 fL (80.0-100.0); Platelet Count 412 K/uL (130-400); RDW Standard Deviation 57.8 fL (36.4-46.3); Red Blood Count 2.96 M/uL (4.20-5.40); White Blood Count 14.70 K/ul (4.8-10.8)
--- NOTE | 2024-10-28 07:23 | Oncology Consultation ---
Date of Consultation October 28, 2024 Assessment & Plan (1) Primary malignant neoplasm of colorectal area with metastasis: Recommend outpatient resumption of chemotherapy once the patient is discharged. 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 Will continue to keep her on chemotherapy which she tolerates given that previously she did not tolerate CapeOx/CAPIRI Plan Thank you for this interesting oncological consult. Total of 60 minutes were spent in counseling, coordination of care, review of prior records. History of Present Illness Reason for Consultation: Colorectal cancer Attending Physician: Chon Méndez History of Present Illness Diagnosis: Colorectal cancer, mismatch repair proficient Date of diagnosis: 06/02/2024 Stage stage IV Treatment: Palliative systemic chemotherapy, CapeOx plus Avastin Abdominal MRI, 05/15/2024 IMPRESSION: 1. Indeterminate 3.7 cm right hepatic lobe and 3.5 cm left hepatic lobe lesions as described above. Metastatic disease would be the primary differential consideration. Correlation with ultrasound-guided tissue sampling recommended. 2. Unremarkable gallbladder without biliary ductal dilation. 3. No lymphadenopathy identified by MR CT of the abdomen pelvis, 05/24/2024: IMPRESSION: 1. Irregular walled heterogenously enhancing lesions in right and left lobe of liver likely hepatic metastasis. 2. Few (2) omental deposits along the right common iliac artery, largest of size 15 x 15mm. 3. Heterogenous lesion adjacent to the right renal pelvis likely metastasis. 4. Heterogenous lesion in upper pole cortex of left kidney, could represent primary lesion. Suggest- Correlation with previous studies. Ultrasound-guided liver biopsy, 06/02/2024: Liver, right lobe, ultrasound-guided core biopsy: - Metastatic adenocarcinoma, consistent with colorectal primary. - Mismatch repair proficient (MMRp). - See comment. Comment: The majority of the specimen consists of necrotic, somewhat mucoid appearing material. There is approximately 50-70 malignant cells present. Per an agreement with oncology, the specimen will be sent for a [facility] SERGIO/CHARBEL Panel. That result will be separately reported in a [facility] report. The concurrent aspirate specimen also contains tumor (refer to that report for further details). Immunohistochemistry: MLH1 Protein: Intact. PMS2 Protein: Intact. MSH2 Protein: Intact. MSH6 Protein: Intact Current treatment: CapeOx plus bevacizumab, cycle 1 day 1 07/15/2024 CapeOx plus bevacizumab, cycle 2-day 1: 08/05/2024 CAPIRI plus bevacizumab, cycle 1 day 1: 08/26/2024 patient with metastatic colorectal cancer currently on palliative systemic therapy, admitted to the hospital with fever, fatigue and failure to thrive. No other symptoms. Had a CT of the abdomen pelvis which shows a new right adnexal lesion measuring 5.5 x 4.5 cm. Allergies Allergy/AdvReac Type Severity Reaction Status Date / Time metronidazole [From Flagyl] AdvReac Severe Vomiting Verified 10/25/24 22:37 Home Medications Medication Instructions Recorded Confirmed Type ondansetron 8 mg disintegrating 8 mg PO Q8H PRN NAUSEA & VOMITING 07/21/24 10/25/24 History tablet diltiazem HCl 300 mg 300 mg PO DAILY #90 caps 07/22/24 10/25/24 Rx capsule,extended release 24 hr (Cartia XT) lisinopril 20 mg tablet 20 mg PO DAILY #90 tabs 07/22/24 10/25/24 Rx omeprazole 40 mg capsule,delayed 40 mg PO DAILY #90 caps 09/04/24 10/25/24 Rx release baclofen 10 mg tablet 10 mg PO Q6H PRN Muscle Spasm 09/10/24 10/25/24 History dicyclomine 20 mg tablet 20 mg PO Q4H PRN Diarrhea 09/10/24 10/25/24 History lidocaine HCl 2 % mucosal solution 1 applic PO Q4H PRN Mouth Pain 09/10/24 History oxycodone 5 mg/5 mL oral solution 5 mg PO Q6H PRN Pain 09/10/24 10/25/24 History prochlorperazine maleate 10 mg 10 mg PO Q6H PRN Nausea And 09/10/24 10/25/24 History tablet Vomiting apixaban 5 mg (74 tabs) tablets in 5 mg PO BID #74 ea 09/21/24 10/25/24 Rx a dose pack (Eliquis) morphine 10 mg/5 mL oral solution 5 mg (2.5 mL) PO Q6H PRN pain #100 09/21/24 10/25/24 Rx mL capecitabine 500 mg tablet See Rx Instructions .Route .COMPLEX 10/25/24 10/25/24 History amoxicillin 875 mg-potassium 1 tab PO BID #7 tabs 10/28/24 Rx clavulanate 125 mg tablet Patient History Medical History BPPV (benign paroxysmal positional vertigo) Glomerulonephritis Surgical History History of thyroid cyst removed History of open reduction and internal fixation (ORIF) procedure left arm, childhood History of biopsy of kidney History of liver biopsy Hx of colonoscopy History of D&C Family History Mother Diabetes Father Stroke Heart disease Hypertension Son Factor VII deficiency Grandmother Myocardial infarction Other Cancer Clotting disorder Colorectal cancer Denies family history of Ovarian cancer Prostate cancer Breast cancer Social History Smoking Status: Never smoker Second Hand Exposure: No; Do You Dip or Chew Tobacco: No; Hx Alcohol Use: No Hx Substance Use: No Preferred Language: Luxembourgish Communication Ability: Effective Communication Ability Comment: needs to be read to- light perception only Visual Impairment: Blindness Hearing Ability: Normal Manual Machinist Required: No Beliefs That Will Affect Care: Rastafarian Rastafarian Beliefs: Alevism marital status: Current Living Situation: Spouse Current Living Situation Comment: Live-in seeing eye dog current occupational status: employed current occupation: Counselor How many Children do You have: 3 Feels Safe at Home: Yes Childhood Exposure to Second-Hand Smoke: No Diet: regular caffeine: Yes Dental Care, Regularly: Yes Physical Activity Frequency: Daily Seatbelt Use: always Sunscreen Use: Yes Assistive Devices: Bedside Commode and Walker Review of Systems Review of Systems: All systems reviewed & are unremarkable except as noted in HPI & below Constitutional: as per Subjective / HPI Eyes: as per Subjective / HPI Ear, Nose, Mouth, Throat: as per Subjective / HPI Respiratory: as per Subjective / HPI Cardiovascular: as per Subjective / HPI Gastrointestinal: as per Subjective / HPI Genitourinary: as per Subjective / HPI Musculoskeletal: as per Subjective / HPI Integumentary: as per Subjective / HPI Neurologic: as per Subjective / HPI Psychiatric: as per Subjective / HPI Endocrine: as per Subjective / HPI Hematologic / Lymphatic: as per Subjective / HPI Allergy / Immunological: as per Subjective / HPI Physical Exam Constitutional: WD/WN, vitals as above Eyes: PERRL, conjunctivae normal, anicteric sclerae ENMT: external ear and nose normal, oropharynx normal Neck: trachea midline, no thyromegaly Respiratory: normal respiratory effort, lungs clear to auscultation Cardiovascular: RRR, no murmur, no edema Gastrointestinal (Abdomen): normal bowel sounds, soft, nontender, no hepatosplenomegaly Musculoskeletal: no cyanosis or clubbing, extremities motor strength 5/5 Skin: no rashes, warm and dry Results & Data Vital Signs (Past 12 Hours) Vital Signs Temp Pulse Pulse Resp BP Pulse Ox O2 Del Method 10/28/24 07:08 36.8 C 74 16 144/83 H 97 Room Air 10/28/24 05:40 74 10/28/24 02:54 37.0 C 79 18 152/88 H 96 Room Air 10/27/24 23:17 37.2 C 82 18 154/84 H 97 Room Air
[2024-10-28 07:38] LABS: Anion Gap 8.0 (3-11); Blood Urea Nitrogen 17.0 mg/dl (6-23); Calcium 9.0 mg/dl (8.6-10.3); Carbon Dioxide 27.0 mmol/L (21-32); Chloride 101.0 mmol/L (98-107); Creatinine Clr Calc Pharmacy 49.9 ml/min; Glucose 112.0 mg/dl (70-99(Fasting)); Potassium 3.6 mmol/L (3.5-5.1); Sodium 136.0 mmol/L (136-145)
[2024-10-28] MEDS: HEPARIN 100 UNIT/ML 5ML FLUSH FLUSH PRN (09:02)
[2024-10-28 11:04] VITALS: BP 138/93; RESP 18; TEMP 98.1; O2SAT 98
--- NOTE | 2024-10-28 11:14 | Discharge Summary ---
Discharge Summary Date of Service October 28, 2024 Principal Dx & Hospital Course #1 = Principal Diagnosis (1) Fever: (2) Hypomagnesemia: (3) Hypokalemia: Plan 64-year-old female PMHx PE on Eliquis, esophageal candidiasis, HTN, neoplasm of colorectal area with metastasis, and GERD presenting for fever of 101.6 (Tmax) on day of arrival with nausea and LLQ abdominal pain. ED evaluation reveals CBC with leukocytosis 17.77, H&H 9.2, 29.2, platelets 406; PT/INR 13/1.2, APTT 36; VBG's pH 7.47, pCO2 33; CMP sodium 134, potassium 3.4, BUN 24, ratio 29.6, glucose 117; magnesium 1.3; alkaline phosphatase 161; albumin 3.2; procalcitonin 0.39; lactate 0.8; UA negative for infection; BioFire negative; CTAP hepatic lesion similar to slightly smaller in size, right adnexal lesion measuring 5.4 x 4.5 cm is new, incompletely characterized lesion in the superior pole L kidney with increase in size (3.3 x 2.2 cm); CXR without acute findings; EKG sinus rhythm with PACs at 90 bpm.; Provided with 1L NSS, Zosyn 4.5 g IV, magnesium 2g IV, and acetaminophen 1 g IV in ED. #Fever Tmax 101.2 F on day of arrival. Some complaints of lower abdominal pain and nausea, without vomiting. Did have history of enterocolitis with diarrhea, treated with 7 day course of Zosyn at that time. ? bacteremia. - CBC leukocytosis 17.77; lactate 0.8; procalcitonin 0.39 - - BioFire negative, UA negative for infection - Blood cx pending but negative at this point, - CXR WNL - CTAP without infectious findings, hepatic lesion similar to slightly smaller in size, right adnexal lesion measuring 5.4 x 4.5 cm is new, incompletely characterized lesion in the superior pole L kidney with increase in size (3.3 x 2.2 cm) -fever curve improving, will remain on antibiotics. consulted ID., unsure of cause. Appreciate input: Patient will be discharged on oral antibiotics for empirical GI coverage. Augmentin BID #Hypomagnesemia Received 2g IV in ED. - Replaced in ED -repeat was normal #Hypokalemia Pt states she cannot tolerate oral K replacement, requesting IV. - repeat was normal. #Colorectal Cancer with metastasis- Follows with heme/onc, most recent visit 10/07/2024; Port in L chest, placed July 08, 2024 without complaints; Heme/onc consulted - appreciate input + recs, continued chemotherapy at time of admission WIll followup with oncologist regarding new adnexal lesion #PE- Eliquis - continue #HTN- Lisinopril on hold per PCP #GERD- Omeprazole - continue #Pain- Oxycodone, morphine - continue Admission HPI Per Admitting Provider 64-year-old female PMHx PE on Eliquis, esophageal candidiasis, HTN, neoplasm of colorectal area with metastasis, and GERD presenting for fever of 101.6 (Tmax) on day of arrival. Patient states that August 2024 she was admitted to the hospital for a bowel infection which she initially had no symptoms from. States that she just presented with a fever and then was admitted for multiple days. She had only experienced some esophageal spasms a few days prior to that. Today, she is presenting with fever of 101.6. She does admit to having abdominal pain "down low" that is described as a jabbing pain that comes and goes. She has had some nausea as well, but no vomiting. 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 Her last normal BM was the day of arrival. Patient states that her port was placed July 08, 2024, without any concerns regarding this. She did recently start chemotherapy, on infusion an oral regimen. Port without erythema or edema, no drainage. She did have some lower extremity edema bilateral legs, has resolved nicely. She does complain of some symptoms of TMJ over the past few days, but no URI symptoms to include congestion/rhinorrhea/sore throat. She did have a bout of esophageal candidiasis previously. She denies chest pain, SOB, palpitations, LUTS, numbness/tingling, weakness, syncope, or falls. No known sick contacts. She has no additional complaints. Patient is tearful, holding rosary and hand throughout visit. She is to have an infusion from oncologist 10/28/2024. Patient did not take her nighttime medications to include capecitabine or Eliquis. ED evaluation reveals CBC with leukocytosis 17.77, H&H 9.2, 29.2, platelets 406; PT/INR 13/1.2, APTT 36; VBG's pH 7.47, pCO2 33; CMP sodium 134, potassium 3.4, BUN 24, ratio 29.6, glucose 117; magnesium 1.3; alkaline phosphatase 161; albumin 3.2; procalcitonin 0.39; lactate 0.8; UA negative for infection; BioFire pending; CTAP hepatic lesion similar to slightly smaller in size, right adnexal lesion measuring 5.4 x 4.5 cm is new, incompletely characterized lesion in the superior pole L kidney with increase in size (3.3 x 2.2 cm); CXR without acute findings; EKG sinus rhythm with PACs at 90 bpm.; Provided with 1L NSS, Zosyn 4.5 g IV, magnesium IV, and acetaminophen 1 g IV in ED. Please see Dr. Stark's attestation for adjustments/additions to treatment plan. Discharge Exam General: No acute distress Head: Normocephalic, atraumatic Cardio: RRR, no M/G/R, S1 and S2 normal Resp: CTA Abdomen: Soft, symmetric, nontender; Neuro: Awake, alert; CN grossly intact Discharge Plan Discharge Items Patient Disposition: Home - Self-Care Reason For Visit: FEVER, HYPOMAG Discharge Diagnosis: fever Condition on Discharge: Fair Activity: Resume your previous activity Non-emergency contact: Primary Care Provider Call non-emergency contact if: you have any medication questions Follow-up/Referrals: Jazzy Echols MD [Primary Care Provider] - 11/04/24 2:00 pm (Primary care hospital follow up scheduled on 11/04/24 at 2:00 with Jazzy Echols) Luis Ware MD [Physician] - (Office is aware of discharge and will reach out to schedule ) Diet: Regular Addtl Attending Provider Instructions: Will continue with Augmentin 875 mg PO BID to complete a 7-day course (10/2510/31/24) - Close follow-up with oncology and primary care Pending Studies at Discharge: No Stand-Alone Forms: [employer], Smoking Cessation Medications and DC Order Prescriptions: Continued diltiazem HCl [Cartia XT] 300 mg capsule,extended release 24hr 300 mg PO DAILY Qty: 90 3RF Hold Instructions: Home Medication placed on hold at Doctor's office omeprazole 40 mg capsule,delayed release(DR/EC) 40 mg PO DAILY Qty: 90 3RF ondansetron 8 mg tablet,disintegrating 8 mg PO Q8H PRN (Reason: NAUSEA & VOMITING) lisinopril 20 mg tablet 20 mg PO DAILY Qty: 90 3RF Hold Instructions: Home Medication placed on hold at Doctor's office oxycodone 5 mg/5 mL solution 5 mg PO Q6H PRN (Reason: Pain) prochlorperazine maleate 10 mg tablet 10 mg PO Q6H PRN (Reason: Nausea And Vomiting) dicyclomine 20 mg tablet 20 mg PO Q4H PRN (Reason: Diarrhea) baclofen 10 mg tablet 10 mg PO Q6H PRN (Reason: Muscle Spasm) lidocaine HCl 2 % solution 1 applic PO Q4H PRN (Reason: Mouth Pain) Eliquis 5 mg (74 tabs) tablets,dose pack 5 mg PO BID Qty: 74 0RF morphine 10 mg/5 mL solution 5 mg PO Q6H PRN (Reason: pain) Qty: 100 0RF capecitabine 500 mg tablet See Rx Instructions .ROUTE .COMPLEX Rx Instructions: TAKES 1000 MG QAM, THEN 1,500 MG QPM Discharge Orders: Discharge Order (Routine); Ordered 10/28/24 Ordered By: Chon Méndez Admission Data Admit Date/Time: 10/25/24 23:20 Attending Provider: Chon Méndez Admit Provider: Keely Stark Primary Care Provider: Jazzy Echols Other Providers: Olivia Ochoa; Luis Ware Other Interventions: Discharge Summary Assessment (RN) Last Done: 10/28/24 14:01 Hospital Stay Data Consultations 10/25/24 22:22 ED Decision to Admit Stat 10/26/24 00:37 Consult Oncology Routine 10/26/24 23:00 Consult Infectious Diseases Routine Diagnostic Imagining Performed 10/25/24 20:09 CT abd pelvis IV con only Stat Pending Results Patient Have Any Pending Studies at Discharge: No Discharge Instructions Given to Patient (Per Discharging Provider) Will continue with Augmentin 875 mg PO BID to complete a 7-day course (10/2510/31/24) - Close follow-up with oncology and primary care Total Time Total Time Spent Total Time Spent (In Minutes): 32 Coding Level of Care Code 48791 INP/OBS DISCH >30 MIN Diagnoses Fever, unspecified fever cause R50.9 Fever type: unspecified Hypomagnesemia E83.42 Hypokalemia E87.6
[2024-10-28 14:07] VITALS: PULSE 79
--- NOTE | 2024-10-29 12:52 | Coding Query ---
CODING QUERY To promote full compliance with coding requirements relating to patient care, provider participation is requested in all cases of core driller uncertainty. Please assist us with the question(s) below: Coding Question(s): It is stated throughout the record that patient has PE and is taking Eliquis. Please clarify if this is a current PE or Hx of. Physician's Response(s): subacute P/E Thank you Ly Romeo Principal Diagnosis: "that condition established after study, to be chiefly responsible for occasioning the admission of the patient to the hospital for care." Co-Existing Principal Diagnosis: "when two or more diagnoses equally meet the criteria for principal diagnosis as determined by the circumstances of admission, diagnostic work up, and/or therapy provided, and the Alphabetic Index, Tabular List, or another coding guideline does not provide sequencing direction, any one of the diagnoses may be sequenced first." "When the physician has documented what appears to be a current diagnosis in the body of the record, but has not included the diagnosis in the final diagnostic statement, the physician should be asked whether the diagnosis should be added." (Source Coding [facility] 2 QTR90. p3-4) MARELY
== END 2024-10-28 14:58 | disposition home or self-care (01) | DRG 864 ==
LOC: ED 19:56 → EDINP 23:20 → SUATTDRO 23:20 → 2S 10-26 00:38